=== PATIENT | male | born 1975 | race Caucasian/White ===

== ENCOUNTER → 2016-05-30 | Outpatient (CLI) | payer OTHER ==
--- NOTE | 2016-05-31 08:54 | DI ---
Indication: [email or web address]: DIAGNOSTIC TESTING PROCEDURE: KNEE LEFT 2 VIEW: Encounter: Initial Comparison: None Findings: There is no acute fracture, dislocation or malalignment identified. Impression: No acute osseous abnormality. .
--- NOTE | 2016-05-31 08:55 | DI ---
Indication: [email or web address]: DIAGNOSTIC TESTING PROCEDURE: KNEE RIGHT 2 VIEW: Encounter: Initial Comparison: None Findings: There is no acute fracture, dislocation or malalignment identified. Impression: No acute osseous abnormality. .
--- NOTE | 2016-05-31 08:55 | DI ---
Indication: [email or web address]: DIAGNOSTIC TESTING PROCEDURE: RADIUS/ULNA LEFT 2 VIEW: Encounter: Initial Comparison: None Findings: There is no acute fracture, dislocation or malalignment identified. Impression: No acute osseous abnormality. .
--- NOTE | 2016-05-31 08:55 | DI ---
Indication: [email or web address]: DIAGNOSTIC TESTING PROCEDURE: HAND LEFT 3 VIEW: Encounter: Initial Comparison: None Findings: There is no acute fracture, dislocation or malalignment identified. Impression: No acute osseous abnormality. .
--- NOTE | 2016-05-31 08:57 | DI ---
Indication: [email or web address]: DIAGNOSTIC TESTING PROCEDURE: RADIUS/ULNA RIGHT 2 VIEW: Encounter: Initial Comparison: None Findings: There is no acute fracture, dislocation or malalignment identified. Impression: No acute osseous abnormality. .
== END ==
LOC: IMA 16:07
DX: Z02.89 Encounter for other administrative examinations (principal)